=== PATIENT | male | born 1990 ===

== ENCOUNTER 2016-10-19 06:44 | Emergency (ER) | payer OTHER ==
[2016-10-19] MEDS ORDERED: Sodium Chloride 0.9% 1,000 ML IV STA (07:21)
[2016-10-19] MEDS ORDERED: Sodium Chloride 0.9% 1,000 ML ONE (07:33)
--- NOTE | 2016-10-19 07:34 | C.PDOC ---
History Of Present Illness 26 y/o male no pmhx presents to the ED with complaints of left flank pain for the past few days. Pt denies fever, chills, SOB, vomiting, diarrhea, constipation, dysuria, testicular pain or any other complaints. Time Seen by Provider: 10/19/16 07:11 Chief Complaint (Nursing): Abdominal Pain History Per: Patient History/Exam Limitations: no limitations Onset/Duration Of Symptoms: Days Current Symptoms Are (Timing): Still Present Severity: Mild Radiation Of Pain To:: None Quality Of Discomfort: "Pain" Associated Symptoms: denies: Fever, Chills, Vomiting, Diarrhea, Constipation, Urinary Symptoms Exacerbating Factors: None Alleviating Factors: None Recent travel outside of the [place]: No Past Medical History Reviewed: Historical Data, Nursing Documentation, Vital Signs Vital Signs: Last Vital Signs Temp 98.7 F 10/19/16 06:55 Pulse 69 10/19/16 06:55 Resp 16 10/19/16 06:55 BP 142/87 10/19/16 06:55 Pulse Ox 100 10/19/16 08:24 Family History: States: Unknown Family Hx - Social History Hx Alcohol Use: Yes Hx Substance Use: No - Immunization History Hx Influenza Vaccination: No Hx Pneumococcal Vaccination: No Review Of Systems Constitutional: Negative for: Fever, Chills Respiratory: Negative for: Shortness of Breath Gastrointestinal: Negative for: Vomiting, Diarrhea, Constipation Genitourinary: Negative for: Dysuria Musculoskeletal: Positive for: Back Pain (left flank pain) Physical Exam - Physical Exam Additional Physical Exam Comments: Constitutional: No acute distress. Head: Normocephalic. Atraumatic. Eyes: PERRL. Neck: Supple. Cardiovascular: Regular rate. Radial pulse 2+ bilaterally. Chest: No tenderness. Respiratory: Clear to auscultation bilaterally. GI: Soft. Nontender. Nondistended. Back: No CVA tenderness. Musculoskeletal: No tenderness or swelling of extremities. Skin: No rash. Neurologic: Alert, no focal deficit. ED Course And Treatment - Laboratory Results Result Diagrams: 10/19/16 07:32 10/19/16 07:32 O2 Sat by Pulse Oximetry: 100 (room air) Pulse Ox Interpretation: Normal Medical Decision Making Medical Decision Making: Plan: * UA * CT abdomen * labs * toradol * IV fluids CT abdomen: LOWER THORAX: Unremarkable. LIVER: Unremarkable. No gross lesion or ductal dilatation. GALLBLADDER AND BILE DUCTS: Unremarkable. PANCREAS: Unremarkable. No gross lesion or ductal dilatation. SPLEEN: Unremarkable. ADRENALS: Unremarkable. No mass. KIDNEYS AND URETERS: 3 mm nonobstructing calculus lower pole right kidney. Two punctate calculi, 2 mm each, lower pole left kidney. 3 mm calculus at left ureterovesical junction with minimal left hydroureter and no hydronephrosis. . No renal mass. VASCULATURE: Unremarkable. No aortic aneurysm. BOWEL: Unremarkable. No obstruction. No gross mural thickening. APPENDIX: Unremarkable. Normal appendix. PERITONEUM: Unremarkable. No free fluid. No free air. LYMPH NODES: Unremarkable. No enlarged lymph nodes. BLADDER: Unremarkable. REPRODUCTIVE: Normal prostate BONES: No acute fracture. OTHER FINDINGS: None. IMPRESSION: Questionably obstructing 3 mm calculus at left ureterovesical junction. Minimal left hydroureter and no hydronephrosis. Bilateral very small nonobstructing renal calculi. Otherwise unremarkable. Labs unremarkable and UA negative except for blood. Will discharge with pain medication, flomax, Zofran as needed, f/u urology, return to ER for worsening pain, intractible vomiting, dyspnea, fever, or any other problem. [employer] registry shows no previous entries. Patient informed of addictive potential of Percocet. Disposition - Disposition Referrals: Loi Wolfe MD [Staff Provider] - Disposition: HOME/ ROUTINE Disposition Time: 08:23 Condition: STABLE Prescriptions: Ibuprofen [Motrin] 600 mg PO Q6 #25 tab Ondansetron ODT [Zofran ODT] 4 mg PO Q8 #12 odt oxyCODONE/Acetaminophen [Percocet 5/325 mg Tab] 1 tab PO Q6 #10 tab Tamsulosin [Flomax] 0.4 mg PO DAILY #5 cap Instructions: Kidney Stones (ED) Forms: Work Excuse - Clinical Impression Clinical Impression: Kidney stone - Scribe Statement The provider has reviewed the documentation as recorded by the Magaly rico Provider Attestation: All medical record entries made by the Aristidesibnat were at my direction and personally dictated by me. I have reviewed the chart and agree that the record accurately reflects my personal performance of the history, physical exam, medical decision making, and the department course for this patient. I have also personally directed, reviewed, and agree with the discharge instructions and disposition.
[2016-10-19 07:56] LABS: CHLORIDE 109 mmol/L (98-107); SODIUM 146 mmol/L (132-148)
[2016-10-19 07:57] LABS: POTASSIUM 3.7 mmol/L (3.6-5.2)
[2016-10-19 07:59] LABS: ALB/GLOB RATIO 1.5 (1.0-2.1); ALKALINE PHOSPHATASE 95 U/L (38-126); ALT/SGPT 43 U/L (21-72); AST/SGOT 40 U/L (17-59); BILIRUBIN,TOTAL 0.5 mg/dL (0.2-1.3); BLOOD UREA NITROGEN 12 mg/dL (9-20); CARBON DIOXIDE 23 mmol/L (22-30); GFR AFRICAN-AMERICAN > 60; TOTAL PROTEIN 7.5 g/dL (6.3-8.3)
[2016-10-19 08:00] LABS: GLUCOSE,RANDOM 126 mg/dL (75-110)
[2016-10-19 08:01] LABS: RBC URINE 54 /hpf (0-3); URINE BILIRUBIN NEGATIVE (NEGATIVE); URINE BLOOD 2+ (NEGATIVE); URINE COLOR Yellow (YELLOW); URINE GLUCOSE (UA) NORMAL (Normal); URINE KETONE NEGATIVE (NEGATIVE); URINE LEUKOCYTE ESTERASE NEG Leu/uL (Negative); URINE PROTEIN NEGATIVE (NEGATIVE); URINE UROBILINOGEN NORMAL mg/dL (0.2-1.0); WBC URINE 2 /hpf (0-5)
[2016-10-19 08:10] LABS: BASO % 0.5 % (0.0-2.0); EOS # 0.2 K/uL (0.0-0.7); EOS % 2.6 % (0.0-4.0); HEMATOCRIT 43.2 % (35.0-51.0); LYMPH # 2.4 K/uL (1.0-4.3); LYMPH % 37.1 % (20.0-40.0); MEAN CELL VOLUME 86.4 fL (80.0-94.0); MEAN CORPUSCULAR HEMOGLOBIN 28.2 pg (27.0-31.0); MEAN CORPUSCULAR HGB CONC 32.6 g/dL (33.0-37.0); MEAN PLATELET VOLUME 10.4 fL (7.2-11.7); MONO # 0.7 K/uL (0.0-0.8); MONO % 10.6 % (0.0-10.0); NRBC % 0.1 % (0.0-2.0); RED CELL DISTRIBUTION WIDTH 13.7 % (11.5-14.5); WHITE BLOOD COUNT 6.5 K/uL (4.8-10.8)
--- NOTE | 2016-10-19 08:17 | CT ---
PROCEDURE: CT Abdomen and Pelvis without intravenous contrast HISTORY: L flank pain COMPARISON: None. TECHNIQUE: Without contrast.. Contrast Dose: 0 Radiation dose: Total exam DLP = 547.79 mGy-cm. This CT exam was performed using one or more of the following dose reduction techniques: Automated exposure control, adjustment of the mA and/or kV according to patient size, and/or use of iterative reconstruction technique. FINDINGS: LOWER THORAX: Unremarkable. LIVER: Unremarkable. No gross lesion or ductal dilatation. GALLBLADDER AND BILE DUCTS: Unremarkable. PANCREAS: Unremarkable. No gross lesion or ductal dilatation. SPLEEN: Unremarkable. ADRENALS: Unremarkable. No mass. KIDNEYS AND URETERS: 3 mm nonobstructing calculus lower pole right kidney. Two punctate calculi, 2 mm each, lower pole left kidney. 3 mm calculus at left ureterovesical junction with minimal left hydroureter and no hydronephrosis. . No renal mass. VASCULATURE: Unremarkable. No aortic aneurysm. BOWEL: Unremarkable. No obstruction. No gross mural thickening. APPENDIX: Unremarkable. Normal appendix. PERITONEUM: Unremarkable. No free fluid. No free air. LYMPH NODES: Unremarkable. No enlarged lymph nodes. BLADDER: Unremarkable. REPRODUCTIVE: Normal prostate BONES: No acute fracture. OTHER FINDINGS: None. IMPRESSION: Questionably obstructing 3 mm calculus at left ureterovesical junction. Minimal left hydroureter and no hydronephrosis. Bilateral very small nonobstructing renal calculi. Otherwise unremarkable.
[2016-10-19 09:11] VITALS: BP 125/80; PULSE 74; RESP 20; TEMP 98; O2SAT 99
== END 2016-10-19 09:11 | disposition home or self-care (01) ==
LOC: C.ER 06:44
DX: N20.0 Calculus of kidney (principal); N13.4 Hydroureter
CPT/HCPCS: 74176; 80053; 81001; 85025; 96361; 96374; 99285; J1885; J7040